=== PATIENT | male | born 1980 | race Caucasian/White ===

== ENCOUNTER → 2017-04-21 | Outpatient (CLI) | payer OTHER | LOC: FLAB 15:09 | PROVIDERS: ATTEND Registered Nurse | DX: J40 Bronchitis, not specified as acute or chronic (principal) ==

== ENCOUNTER 2017-10-15 10:34 | Emergency (ER) | payer OTHER ==
[2017-10-15 10:41] VITALS: RESP 16
--- NOTE | 2017-10-15 11:01 | EDPHY ---
HPI/HX/ROS/PE/MDM Narrative: CHIEF COMPLAINT: Groin pain HPI: This patient is a 37 year old male with history of celiac disease complaining of right-sided groin pain. His discomfort began 2-3 weeks ago, and he cannot identify any obvious provocation. He denies any unusual activities or trauma. He has a "tugging" sensation associated with his pain, and endorses pain in his right testicle. He has increased pain with erections. He denies dysuria or pain with bowel movements. He denies fever, abdominal pain, nausea, vomiting, diarrhea, constipation, or other associated symptoms. REVIEW OF SYSTEMS: Aside from elements discussed in the HPI, a comprehensive 10-point review of systems was reviewed and is negative. PMH: Celiac disease. SOCIAL HISTORY: Significant other at bedside. Lives in [place]. Employed. PHYSICAL EXAM: General:Patient is alert, in no acute distress. ENT:Eyes are normal to inspection. ENT inspection normal. Neck: Normal inspection. Full range of motion. Respiratory:No respiratory distress. Breath sounds normal bilaterally. Cardiovascular: Regular rate and rhythm. Strong peripheral pulses. Normal cap refill. Genitourinary: Normal appearance Abdomen:The abdomen is nontender to palpation. There are no peritoneal signs. There are normal bowel sounds. Back: Normal to inspection. No tenderness to palpation. Skin: Normal color. No rash. Warm and dry. Extremities: Normal appearance. Full range of motion. Neuro: Oriented x3. Normal motor function. Normal sensory function. ED Course: 37 y/o male presents with right-sided groin pain. Exam unremarkable. Plan for labs including CBC, UA.Plan for ultrasound of right testicle. Laboratory studies within normal limits. No evidence of UTI. 12:[address] Briscoe, radiologist. US negative for acute processes including testicular torsion. Plan for CT for further evaluation. 13:[address] Briscoe, radiologist. CT negative for acute processes. Reassessed patient. Discussed imaging results. Plan to discharge home in good condition. Follow up and return precautions discussed. He is comfortable with this plan. MDM: This is healthy obese male with RLQ/inguinal pain of unclear etiology. We performed US and CT of the affected area and no abnormality was noted by the radiologists. The patient has no other symptoms and UA is normal. I think he is safe for further outpatient workup and I have recommended this to the patient. - Data Points Imaging Results: Imaging Impressions Testicular Ultrasound 10/15/17 11:13 Impression: Mild bilateral hydrocele. No evidence for testicular torsion. Results called and discussed with Corey Oliveros MD on October 15, [address] 10/15/17 12:40 Impression: No CT findings for appendicitis. No evidence for acute intraabdominal or pelvic abnormality. Results called and discussed with Corey Oliveros MD on October 15, 2017 at 1340 hours. Imaging: Discussed imaging studies w/ call center associate Radiologist Laboratory Results: Laboratory Results 10/15/17 12:59 10/15/17 10/15/17 10/15/17 12:59 12:54 12:24 WBC 9.33 10^3/uL 10^3/uL (3.80-9.50) RBC 5.83 10^6/uL 10^6/uL (4.40-6.38) Hgb 17.6 g/dL H g/dL (13.7-17.5) POC Hgb 17.0 gm/dL gm/dL (13.7-17.5) Hct 49.3 % % (40.0-51.0) POC Hct 50 % % (40-51) MCV 84.6 fL fL (81.5-99.8) MCH 30.2 pg pg (27.9-34.1) MCHC 35.7 g/dL g/dL (32.4-36.7) RDW 13.5 % % (11.5-15.2) Plt Count 312 10^3/uL 10^3/uL (150-400) MPV 9.2 fL fL (8.7-11.7) Neut % (Auto) 57.7 % % (39.3-74.2) Lymph % (Auto) 27.7 % % (15.0-45.0) [place] % (Auto) 8.5 % % (4.5-13.0) Eos % (Auto) 4.9 % % (0.6-7.6) Baso % (Auto) 0.9 % % (0.3-1.7) Nucleat RBC Rel Count 0.0 % % (0.0-0.2) Absolute Neuts (auto) 5.39 10^3/uL 10^3/uL (1.70-6.50) Absolute Lymphs (auto) 2.58 10^3/uL 10^3/uL (1.00-3.00) Absolute Monos (auto) 0.79 10^3/uL 10^3/uL (0.30-0.80) Absolute Eos (auto) 0.46 10^3/uL H 10^3/uL (0.03-0.40) Absolute Basos (auto) 0.08 10^3/uL 10^3/uL (0.02-0.10) Absolute Nucleated RBC 0.00 10^3/uL 10^3/uL (0-0.01) Immature Gran % 0.3 % % (0.0-1.1) Immature Gran # 0.03 10^3/uL 10^3/uL (0.00-0.10) POC Sodium 141 mEq/L mEq/L (134-144) POC Potassium 4.0 mEq/L mEq/L (3.3-5.0) POC Chloride 106 mEq/L mEq/L (97-110) POC BUN 18 mg/dL mg/dL (7-23) POC Creatinine 1.0 mg/dL mg/dL (0.7-1.3) POC Glucose 88 mg/dL mg/dL (70-100) Urine Color YELLOW Urine Appearance CLEAR Urine pH 5.0 (5.0-7.5) Ur Specific [place] 1.029 (1.002-1.030) Urine Protein NEGATIVE (NEGATIVE) Urine Ketones 1+ H (NEGATIVE) Urine Blood NEGATIVE (NEGATIVE) Urine Nitrate NEGATIVE (NEGATIVE) Urine Bilirubin NEGATIVE (NEGATIVE) Urine Urobilinogen NEGATIVE EU EU (0.2-1.0) Ur Leukocyte Esterase NEGATIVE (NEGATIVE) Urine Glucose NEGATIVE (NEGATIVE) Point of Care Test Results: 10/15/17 12:54 POC Sodium 141 POC Potassium 4.0 POC Chloride 106 POC BUN 18 POC Creatinine 1.0 POC Glucose 88 General Time Seen by Provider: 10/15/17 10:47 Initial Vital Signs: Initial Vital Signs Temperature (C) 36.5 C 10/15/17 10:38 Heart Rate 81 10/15/17 10:38 Respiratory Rate 16 10/15/17 10:38 Blood Pressure 134/77 H 10/15/17 10:38 O2 Sat (%) 93 10/15/17 10:38 O2 Delivery Mode Room Air Allergies/Adverse Reactions: No Known Allergies Allergy (Unverified 10/15/17 10:37) Home Medications: Medication Instructions Recorded Ambien 10/15/17 GABAPENTIN 10/15/17 Hydrocodon-Acetaminoph 7.5-750 10/15/17 Departure - Departure Disposition: Home, Routine, Self-Care Clinical Impression: Abdominal pain Condition: Good Instructions: Acute Abdominal Pain (ED) Additional Instructions: Follow-up with your primary doctor within 72 hours. Return to the Emergency Department for worsening pain, fever, severe vomiting, change in character or severity of pain or other worsening of condition. Referrals: Ritu Armijo MD [Primary Care Provider] - As per Instructions Report Scribed for: Corey Oliveros Report Scribed by: Doris Zamora Date of Report: 10/15/17 Time of Report: 11:08 Physician Review and Approval Statement: Portions of this note were transcribed by an ED scribe. I personally performed the history, physical exam, and medical decision making; and confirm the accuracy of the information in the transcribed note.
[2017-10-15] MEDS ORDERED: IOPAMIDOL (ISOVUE-300) 100 ML BTL ONE (12:46)
[2017-10-15 13:12] LABS: PLATELET COUNT 312 10^3/uL (150-400)
[2017-10-15] MEDS ORDERED: IOPAMIDOL (ISOVUE 370) 100 ML BTL IV ONE (13:14)
[2017-10-15 14:28] VITALS: BP 109/66; PULSE 75; TEMP 97.9; O2SAT 96
== END 2017-10-15 14:28 | disposition home or self-care (01) ==
DX: R10.9 Unspecified abdominal pain (principal)
CPT/HCPCS: 82947-QW; Q9967